=== PATIENT | male | born 1980 | race Caucasian/White ===

== ENCOUNTER 2021-09-11 15:11 | Emergency (ER) | payer OTHER ==
[~2021-09-11] VITALS: Ht 185.4 cm; Wt 100.0 kg
[~2021-09-11 15:11] MED LIST: FLEXERIL10 MG PO; MINOCYCLINE HCL50 MG PO; NAPROXEN SODIU550 MG PO; NORCO 325 MG-51 TA1 PO
[2021-09-11] MEDS ORDERED: NORCO 325 MG-51 TA1 PO (17:02)
[2021-09-11 17:17] VITALS: BP 138/95
== END 2021-09-11 17:20 | disposition home or self-care (01) ==
LOC: ED 15:11
DX: S09.90XA Unspecified injury of head, initial encounter (principal); S01.01XA Laceration without foreign body of scalp, initial encounter; Z87.891 Personal history of nicotine dependence; W22.8XXA Striking against or struck by other objects, initial encounter
CPT/HCPCS: 90715

== ENCOUNTER 2024-04-14 08:00 | Outpatient (RCR) | payer BC | END 2024-05-11 11:15 | LOC: PT 08:00 | DX: S82.842D Displaced bimalleolar fracture of left lower leg, subsequent encounter for closed fracture with routine healing (principal); X58.XXXD Exposure to other specified factors, subsequent encounter ==